=== PATIENT | female | born 1955 | race African-American/Black ===

== ENCOUNTER 2021-11-13 14:12 | Emergency (ER) | payer BC ==
[~2021-11-13] VITALS: Ht 160 cm; Wt 91.0 kg
[2021-11-13] MEDS ORDERED: SIME125C PO (14:24)
[2021-11-13] MEDS ORDERED: ASPIRIN 81MG TABLET PO ONE (15:30)
[2021-11-13 15:48] LABS: BASOPHILS % 0.7 % (0.0-2.0); HEMATOCRIT. 46.9 % (42.0-52.0); HEMOGLOBIN. 15.6 g/dL (14.0-18.0); LYMPHOCYTES % 37.2 % (20.0-50.0); MEAN CORPUSCULAR HEMOGLOBIN 34.2 pg (28.0-32.0); MEAN CORPUSCULAR VOLUME 102.9 fL (80.0-94.0); MONOCYTES % 7.1 % (2.0-8.0); RED BLOOD CELL COUNT 4.56 mill/uL (4.7-6.1); RED CELL DISTRIBUTION WIDTH 14.3 % (11.6-14.6)
[2021-11-13 15:56] LABS: CHLORIDE 104 mEq/L (98-107)
[2021-11-13 16:40] LABS: MEAN PLATELET VOLUME 9.8 fl (7.4-10.4); PLATELET 278 x1000/uL (130-400)
[2021-11-13] MEDS ORDERED: AMLODIPINE 5MG TABLET PO ONE (20:45)
[2021-11-13] MEDS ORDERED: ASPIRIN 81MG TABLET PO NR (21:00)
[2021-11-14 02:00] VITALS: BP 132/74
== END 2021-11-14 04:22 | disposition short-term general hospital (02) ==
LOC: ER 14:12 → EDSEX 14:12 → ER 11-14 04:22 → CANBEDREQ 11-14 11:50
DX: R07.89 Other chest pain (principal); I10 Essential (primary) hypertension; F17.210 Nicotine dependence, cigarettes, uncomplicated; Z20.822 Contact with and (suspected) exposure to COVID-19; Z90.710 Acquired absence of both cervix and uterus; Z88.0 Allergy status to penicillin; Z91.041 Radiographic dye allergy status
CPT/HCPCS: 36415; 71045; 80053; 83880; 84484; 85025; 85379; 87426; 93005; 93971; 99285; C9803; Z7610

== ENCOUNTER 2024-08-09 14:01 | Emergency (ER) | payer BC, MEDICARE ==
[~2024-08-09] VITALS: Ht 160 cm; Wt 91.0 kg
[~2024-08-09 14:01] MED LIST: SIME125C PO
[2024-08-09 14:02] VITALS: TEMP 36.4; O2SAT 100
[2024-08-09 15:54] VITALS: TEMP 97.5
[2024-08-09] MEDS: ACETAMINOPHEN 325MG TABLET PO ONE (15:54)
[2024-08-09] MEDS: PREDNISONE 20MG TABLET PO ONE (17:32)
[2024-08-09 17:37] VITALS: PULSE 112; RESP 20
[2024-08-09] MEDS: IPRATROPIUM/ALBUTEROL 0.5-3(2.5)MG/3ML NEB HHN ONE (17:37)
[2024-08-09] MEDS ORDERED: GUAI-450 MT (18:04)
[2024-08-09 18:19] LABS: INFLUENZA TYPE A Presumptive Negative (Pres. Neg.)
[2024-08-09 18:20] LABS: INFLUENZA TYPE B Presumptive Negative (Pres. Neg.)
[2024-08-09 18:21] LABS: RESPIRATORY SYNCYTIAL VIRUS Not Detected (Not Detectd)
[2024-08-09 18:45] VITALS: BP 149/83; PULSE 94; RESP 18; O2SAT 100
== END 2024-08-09 18:47 | disposition home or self-care (01) ==
LOC: ER 14:01
DX: J06.9 Acute upper respiratory infection, unspecified (principal); I10 Essential (primary) hypertension; Z20.822 Contact with and (suspected) exposure to COVID-19; Z88.0 Allergy status to penicillin; Z90.710 Acquired absence of both cervix and uterus
CPT/HCPCS: 99284; 71045; 87426; 87420; 87804 ×2; 94640; J7512

== ENCOUNTER 2025-02-19 15:04 | Emergency (ER) | payer MEDICARE ==
[~2025-02-19] VITALS: Ht 160 cm; Wt 91.0 kg
[~2025-02-19 15:04] MED LIST changes: +GUAI-450 MT
[2025-02-19 15:08] VITALS: O2SAT 95
[2025-02-19 17:53] LABS: INFLUENZA TYPE A Presumptive Negative (Pres. Neg.); INFLUENZA TYPE B Presumptive Negative (Pres. Neg.)
[2025-02-19 17:54] LABS: RESPIRATORY SYNCYTIAL VIRUS Not Detected (Not Detectd)
[2025-02-19 18:20] VITALS: BP 158/85; PULSE 79; RESP 22; TEMP 36.6; O2SAT 98
== END 2025-02-19 18:51 | disposition home or self-care (01) ==
LOC: ER 15:04
DX: B34.9 Viral infection, unspecified (principal); I10 Essential (primary) hypertension; M19.90 Unspecified osteoarthritis, unspecified site; Z88.0 Allergy status to penicillin; Z90.710 Acquired absence of both cervix and uterus
CPT/HCPCS: 71045; 87420; 87426; 87804; 99284